=== PATIENT | female | born 1960 | race Caucasian/White ===

== ENCOUNTER 2018-10-21 07:00 | Observation (INO) | payer OTHER ==
[~2018-10-21] VITALS: Ht 160 cm; Wt 68.0 kg
[2018-10-21 07:29] LABS: BASOPHILS % (AUTO) 1.2 % (0.0-5.0); EOSINOPHILS % (AUTO) 2.2 % (0.0-8.0); LYMPHOCYTES % (AUTO) 46.9 % (21.0-51.0); MEAN CORPUSCULAR HEMOGLOBIN 29.4 pg (27.0-33.0); MEAN CORPUSCULAR HGB CONC 33.4 g/dL (32.0-36.0); MEAN CORPUSCULAR VOLUME 88.2 fL (79-99); MONOCYTES % (AUTO) 7.4 % (3.0-13.0); NEUTROPHILS % (AUTO) 42.3 % (40.0-77.0); NUCLEATED RED BLOOD CELLS 0.2 % (0.0-0.19); PLATELET COUNT (AUTO) 338 K/uL (130-400); RED BLOOD CELL COUNT(AUTO) 4.09 MIL/uL (4.00-5.50); RED CELL DISTRIBUTION WIDTH 13.3 % (11.0-15.5); WHITE BLOOD COUNT (AUTO) 7.4 K/uL (4.8-10.8)
[2018-10-21] MEDS ORDERED: ASPIRIN 325 MG TABLET ONE (07:30)
[2018-10-21] MEDS ORDERED: SODIUM CHLORIDE 0.9% 1000ML 1,000 ML IV ONE ×2 (07:30→09:55)
[2018-10-21 07:39] LABS: CREATININE 0.7 mg/dL (0.5-1.5); POTASSIUM 3.7 mmol/L (3.5-5.1)
[2018-10-21 07:44] LABS: B-TYPE NATRIURETIC PEPTIDE 58 pg/mL (0-100)
[2018-10-21 07:45] LABS: INR 1.07 (0.85-1.15); PARTIAL THROMBOPLASTIN TIME 28.5 SEC (26.3-35.5); PROTHROMBIN TIME 11.2 SEC (9.6-11.6)
[2018-10-21 07:47] LABS: ALBUMIN 3.6 g/dL (3.5-5.0); BILIRUBIN,TOTAL 0.2 mg/dL (0.2-1.0)
[2018-10-21] MEDS ORDERED: ACETAMINOPHEN 325 MG TAB PO PRN (09:30)
[2018-10-21] MEDS ORDERED: ONDANSETRON HCL 4 MG/2 ML VIAL IV PRN (09:30)
[2018-10-21] MEDS ORDERED: LACTULOSE 20 GM/30 ML UDCUP PO PRN (09:30)
[2018-10-21] MEDS ORDERED: HYDRALAZINE HCL 20 MG/ML VIAL IV PRN (09:30)
[2018-10-21] MEDS ORDERED: ENOXAPARIN SODIUM 40 MG/0.4 ML SYRINGE SQ ONE (09:55)
[2018-10-21 10:03] LABS: PHOSPHORUS 4.3 mg/dL (2.5-4.9); THYROID STIMULATING HORMONE 1.67 uIU/mL (0.36-3.74)
[2018-10-21 11:23] LABS: CREATINE KINASE, TOTAL 119 U/L (21-232); MYOGLOBIN 48 ng/mL (10-92); TROPONIN I < 0.04 ng/mL (0.00-0.06)
[2018-10-21 11:38] VITALS: BP 140/67
[2018-10-21] MEDS: SODIUM CHLORIDE 0.9% 1000ML 1,000 ML IV SCH ×3 (13:14→23:05)
[2018-10-21] MEDS: MECLIZINE HCL 25 MG TABLET PO SCH ×2 (13:14→22:02)
[2018-10-21 16:18] VITALS: BP 127/56
[2018-10-21 17:55] LABS: CREATINE KINASE, TOTAL 109 U/L (21-232); MYOGLOBIN 34 ng/mL (10-92); TROPONIN I < 0.04 ng/mL (0.00-0.06)
[2018-10-21 19:45] VITALS: BP 118/66
[2018-10-21] MEDS ORDERED: FAMO-136 PO (19:52)
[2018-10-21] MEDS ORDERED: ESCI10TA PO (19:52)
[2018-10-21] MEDS ORDERED: ASPI-1181 PO (19:52)
[2018-10-21 20:01] VITALS: BP 121/56
[2018-10-21] MEDS ORDERED: MULT-1203 PO (20:03)
[2018-10-21] MEDS ORDERED: MONT10TA21 PO (20:03)
[2018-10-21] MEDS ORDERED: BENZ-39 PO (20:03)
[2018-10-21] MEDS: FAMOTIDINE/PF 20 MG/2 ML VIAL IV SCH (21:20)
[2018-10-22] VITALS: BP 108/58
[2018-10-22 01:55] LABS: CREATINE KINASE, TOTAL 91 U/L (21-232); MYOGLOBIN 24 ng/mL (10-92); TROPONIN I < 0.04 ng/mL (0.00-0.06)
[2018-10-22 04:00] VITALS: BP 118/69
[2018-10-22] MEDS: MECLIZINE HCL 25 MG TABLET PO SCH (05:27)
[2018-10-22] MEDS: SODIUM CHLORIDE 0.9% 1000ML 1,000 ML IV SCH (05:30)
[2018-10-22 07:32] VITALS: BP 124/71
[2018-10-22] MEDS ORDERED: FAMOTIDINE 20MG TAB 20 MG TAB ONE (08:31)
[2018-10-22] MEDS: FAMOTIDINE/PF 20 MG/2 ML VIAL IV SCH (08:48)
[2018-10-22] MEDS ORDERED: FAMOTIDINE 20MG TAB 20 MG TAB PO SCH (09:00)
[2018-10-22] MEDS ORDERED: ENOXAPARIN SODIUM 40 MG/0.4 ML SYRINGE SQ SCH (09:00)
[2018-10-22 11:30] VITALS: BP 96/54
[2018-10-22 16:40] VITALS: BP 109/60
[2018-10-22 17:17] VITALS: BP_SYST 134; BP_SYST 140; BP_SYST 144; BP_DIAS 66; BP_DIAS 67; BP_DIAS 71
[2018-10-22] MEDS ORDERED: MECL12.585 PO (17:24)
[2018-10-23] MEDS ORDERED: MECLIZINE HCL 25 MG TABLET PO PRN (06:00)
== END 2018-10-22 18:05 | disposition home or self-care (01) ==
LOC: EDH 07:00 → EDHIP 09:30 → 4CH 10:07
PROVIDERS: ADMIT Internal Medicine; ATTEND Internal Medicine
DX: R42 Dizziness and giddiness (principal); E78.5 Hyperlipidemia, unspecified; K21.9 Gastro-esophageal reflux disease without esophagitis; H55.00 Unspecified nystagmus; I49.3 Ventricular premature depolarization; M81.0 Age-related osteoporosis without current pathological fracture; J11.1 Influenza due to unidentified influenza virus with other respiratory manifestations; F41.9 Anxiety disorder, unspecified; F17.210 Nicotine dependence, cigarettes, uncomplicated; Z90.721 Acquired absence of ovaries, unilateral; Z79.899 Other long term (current) drug therapy; Z79.01 Long term (current) use of anticoagulants
CPT/HCPCS: 36415 ×2; 70450; 71045; 80053; 82550 ×4; 83735; 83874 ×4; 83880; 84100; 84443; 84484 ×4; 85025; 85610; 85730; 93005 ×2; 93306; 96361 ×2; 96374; 99284; G0378 ×33; J3490; J7030 ×4; J1650

== ENCOUNTER → 2019-06-11 | Outpatient (CLI) | payer OTHER ==
[~2019-06-11] MED LIST: ASPI-1181 PO; BENZ-39 PO; ESCI10TA PO; FAMO-136 PO; MECL12.585 PO; MONT10TA21 PO; MULT-1203 PO
[2019-06-11 12:35] LABS: BASOPHILS % (AUTO) 0.9 % (0.0-5.0); EOSINOPHILS % (AUTO) 1.9 % (0.0-8.0); HEMATOCRIT 39.5 % (36-48); LYMPHOCYTES % (AUTO) 39.5 % (21.0-51.0); MEAN CORPUSCULAR HEMOGLOBIN 29.3 pg (27.0-33.0); MEAN CORPUSCULAR VOLUME 88.8 fL (79-99); MONOCYTES % (AUTO) 8.6 % (3.0-13.0); NEUTROPHILS % (AUTO) 49.1 % (40.0-77.0); PLATELET COUNT (AUTO) 353 K/uL (130-400); RED BLOOD CELL COUNT(AUTO) 4.45 MIL/uL (4.00-5.50); RED CELL DISTRIBUTION WIDTH 13.9 % (11.0-15.5); WHITE BLOOD COUNT (AUTO) 6.6 K/uL (4.8-10.8)
[2019-06-11 12:52] LABS: HEMOGLOBIN A1C 5.6 % (4.0-6.0)
[2019-06-11 13:01] LABS: ALBUMIN 3.8 g/dL (3.5-5.0); BILIRUBIN,TOTAL 0.4 mg/dL (0.2-1.0); CREATININE 0.8 mg/dL (0.5-1.5); POTASSIUM 4.3 mmol/L (3.5-5.1); THYROID STIMULATING HORMONE 2.2 uIU/mL (0.36-3.74); TOTAL PROTEIN, SERUM 7.9 g/dL (6.0-8.3)
== END | disposition home or self-care (01) ==
LOC: LAB 12:04
PROVIDERS: ATTEND Internal Medicine
DX: Z00.00 Encounter for general adult medical examination without abnormal findings (principal); D51.9 Vitamin B12 deficiency anemia, unspecified; E55.9 Vitamin D deficiency, unspecified; R73.09 Other abnormal glucose; R53.83 Other fatigue
CPT/HCPCS: 36415; 71046; 80053; 80061; 82306; 82607; 83036; 84443; 85025; 93005